=== PATIENT | male | born 1990 | race Caucasian/White ===

== ENCOUNTER 2021-09-14 19:33 | Emergency (ER) | payer OTHER ==
[~2021-09-14] VITALS: Ht 180.3 cm; Wt 117.0 kg
[2021-09-14 20:51] VITALS: BP 139/67
== END 2021-09-14 21:44 | disposition home or self-care (01) ==
LOC: EMS 19:33
DX: Z03.821 Encounter for observation for suspected ingested foreign body ruled out (principal); F41.9 Anxiety disorder, unspecified; F20.9 Schizophrenia, unspecified; F12.90 Cannabis use, unspecified, uncomplicated; Z87.19 Personal history of other diseases of the digestive system
CPT/HCPCS: 74018; 99283